=== PATIENT | female | born 1985 ===

== ENCOUNTER → 2021-06-05 | Outpatient (CLI) | payer SELFPAY ==
[2021-06-05 14:11] LABS: Candida species (DNA Probe) Negative (NEGATIVE); G. vaginalis (DNA Probe) Positive (NEGATIVE); T. vaginalis (DNA Probe) Negative (NEGATIVE)
== END ==
LOC: LAB SHORT 10:11
PROVIDERS: Registered Nurse Community Health
DX: N89.8 Other specified noninflammatory disorders of vagina (principal)
CPT/HCPCS: 87480; 87510; 87660

== ENCOUNTER → 2022-02-14 | Outpatient (CLI) | payer OTHER | LOC: LAB SHORT 15:15 → LAB 15:15 | DX: R12 Heartburn (principal) | CPT/HCPCS: 87338 ==

== ENCOUNTER → 2022-04-10 | Outpatient (CLI) | payer OTHER ==
[2022-04-11 10:33] LABS: Candida species (DNA Probe) Negative (NEGATIVE); G. vaginalis (DNA Probe) Positive (NEGATIVE); T. vaginalis (DNA Probe) Negative (NEGATIVE)
[2022-04-12 08:11] LABS: CHLAMYDIA BY NAA Negative (Negative); GONOCOCCUS BY NAA Negative (Negative); TRICH VAG BY NAA Negative (Negative)
== END | disposition home or self-care (01) ==
LOC: LAB SHORT 09:00 → LAB 09:00
PROVIDERS: Family Medicine
DX: N89.8 Other specified noninflammatory disorders of vagina (principal)
CPT/HCPCS: 87480; 87491; 87510; 87591; 87660; 87661

== ENCOUNTER → 2023-02-13 | Outpatient (CLI) | payer OTHER ==
[2023-02-14 11:38] LABS: Candida species (DNA Probe) Negative (NEGATIVE); G. vaginalis (DNA Probe) Negative (NEGATIVE); T. vaginalis (DNA Probe) Negative (NEGATIVE)
[2023-02-15 21:07] LABS: HIV AB/P24 AG SCREEN Non Reactive (Non Reactive)
[2023-02-16 07:12] LABS: HBSAG SCREEN Negative (Negative); HCV AB Non Reactive (Non Reactive); HEP A AB, IGM Negative (Negative); HEP B CORE AB, TOT Negative (Negative)
== END ==
LOC: LAB SHORT 16:30 → LAB 16:30
PROVIDERS: Family Medicine
DX: Z11.59 Encounter for screening for other viral diseases (principal)
CPT/HCPCS: 86592; 87480; 87510; 87660

== ENCOUNTER → 2023-03-19 | Outpatient (CLI) | payer OTHER ==
[2023-03-22 20:19] LABS: APTIMA MEDIA TYPE Unisex Swab; C. TRACHOMATIS BY TMA Negative (Negative); N. GONORRHOEAE BY TMA Negative (Negative); SPECIMEN SOURCE Not Provided; T. VAGINALIS BY TMA Positive (Negative)
== END ==
LOC: LAB 18:44 → LAB SHORT 18:44
PROVIDERS: Registered Nurse Community Health
DX: Z11.3 Encounter for screening for infections with a predominantly sexual mode of transmission (principal)
CPT/HCPCS: 87491; 87591; 87661

== ENCOUNTER → 2023-10-22 | Outpatient (CLI) | payer OTHER ==
[2023-10-22 19:55] LABS: Bacterial Vaginosis PCR Negative (NEGATIVE); Candida Group, PCR NOT DETECTED (NOT DETECT); Candida glabrata-krusei, PCR NOT DETECTED (NOT DETECT)
[2023-10-25 03:53] LABS: APTIMA MEDIA TYPE MultiTest Swab; C. TRACHOMATIS BY TMA Negative (Negative); N. GONORRHOEAE BY TMA Negative (Negative); SPECIMEN SOURCE Vaginal; T. VAGINALIS BY TMA Negative (Negative)
== END ==
LOC: LAB 13:29 → LAB SHORT 13:29
PROVIDERS: Registered Nurse Community Health
DX: N89.8 Other specified noninflammatory disorders of vagina (principal)
CPT/HCPCS: 87481; 87491; 87591; 87661; 87801

== ENCOUNTER → 2025-01-25 | Outpatient (CLI) | payer OTHER ==
[2025-01-26 15:44] LABS: Bacterial Vaginosis PCR Negative (NEGATIVE); Candida glabrata-krusei, PCR NOT DETECTED (NOT DETECT)
[2025-01-26 15:50] LABS: Candida Group, PCR DETECTED (NOT DETECT)
[2025-01-26 16:17] LABS: Chlamydia Trachomatis Vaginal NOT DETECTED (NOT DETECT); Neisseria Gonorrhoea Vaginal NOT DETECTED (NOT DETECT)
== END ==
LOC: LAB SHORT 13:25 → LAB 13:25
PROVIDERS: Registered Nurse Community Health
DX: N89.8 Other specified noninflammatory disorders of vagina (principal)
CPT/HCPCS: 81515; 87491; 87591